=== PATIENT | male | born 2000 | race Caucasian/White ===

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

== ENCOUNTER 2019-04-28 16:57 | Emergency (ER) | payer OTHER, BC ==
[2019-04-28] MEDS: LIDOCAINE 1% (MDV) 10 ML INJ INJ (17:30)
[2019-04-28] MEDS: DIPHTH/TET/ACEL PERTUSS (ADULT) 0.5 ML VIAL IM* (18:39)
== END 2019-04-28 19:19 | disposition home or self-care (01) ==
LOC: FTE 16:57
DX: S61.512A Laceration without foreign body of left wrist, initial encounter (principal); W25.XXXA Contact with sharp glass, initial encounter; Y92.810 Car as the place of occurrence of the external cause; Z23 Encounter for immunization
CPT/HCPCS: 12001; 73100; 90471; 90715; 99283-25